=== PATIENT | male | born 1955 | race Caucasian/White ===

== ENCOUNTER 2018-11-22 09:48 | Emergency (ER) | payer SELFPAY ==
[~2018-11-22] VITALS: Ht 167.6 cm; Wt 65.8 kg
[2018-11-22 10:04] VITALS: Ht 167.6 cm; Wt 65.8 kg
[2018-11-22 12:29] VITALS: BP 159/85
== END 2018-11-22 12:28 | disposition home or self-care (01) ==
LOC: D.ER 09:48
DX: S43.005A Unspecified dislocation of left shoulder joint, initial encounter (principal)